=== PATIENT | female | born 1965 | race Caucasian/White ===

== ENCOUNTER → 2020-02-12 15:34 | Outpatient (BNVA) | payer OTHER, SELFPAY | PROVIDERS: PCP Physician Assistant Medical; Referring Provider Physician Assistant Medical; Visit Provider Student in an Organized Health Care Education/Training Program | DX: Z76.89 Persons encountering health services in other specified circumstances (principal) ==

== ENCOUNTER 2020-03-12 08:45 | Outpatient (REF) | payer OTHER, SELFPAY ==
--- NOTE | 2020-03-12 08:51 | EMG_ITS ---
Bilateral tibial and peroneal motor studies were performed. Bilateral sural and superficial peroneal sensory studies were performed. Bilateral tibial H reflexes were obtained and paraspinal muscles were tested. IMPRESSION: 1. 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 2. Underlying generalized mild neuropathy mostly affecting sensory nerves. MD MARCELA Medina/ANY / [id number]
== END 2020-03-12 08:46 | disposition home or self-care (01) ==
LOC: HO.NEURO 08:45
PROVIDERS: Visit Provider Student in an Organized Health Care Education/Training Program
DX: R20.0 Anesthesia of skin (principal); R20.2 Paresthesia of skin
CPT/HCPCS: 95860; 95886; 95911

== ENCOUNTER → 2020-08-18 15:33 | Outpatient (BNVA) | payer OTHER, SELFPAY | PROVIDERS: PCP Physician Assistant Medical; Visit Provider Student in an Organized Health Care Education/Training Program ==

== ENCOUNTER → 2021-03-01 14:19 | Outpatient (BNVA) | payer OTHER, SELFPAY | PROVIDERS: PCP Physician Assistant Medical; Visit Provider Nurse Practitioner Family ==

== ENCOUNTER 2021-12-10 15:20 | Outpatient (REF) | payer OTHER, SELFPAY ==
[2021-12-10 17:37] LABS: Alanine Aminotransferase 18 U/L (0-31); Albumin Level 4.5 g/dL (3.5-5.0); Alkaline Phosphatase 83 U/L (39-117); Anion Gap 17 (12-20); Aspartate Amino Transferase 30 U/L (5-31); Bilirubin Total 0.2 mg/dL (0.0-1.0); Blood Urea Nitrogen 20 mg/dL (9-16); Calcium 9.6 mg/dL (8.4-10.2); Carbon Dioxide 24 mmol/L (22-29); Chloride 104 mmol/L (96-108); Estimated Glomerular Filt Rate > 60; Glucose Random 70 mg/dL (60-115); Potassium 4.4 mmol/L (3.3-5.1); Sodium 141 mmol/L (135-145); Total Protein 7.4 g/dL (6.5-8.0)
== END 2021-12-10 15:21 | disposition home or self-care (01) ==
LOC: HO.LAB 15:20
PROVIDERS: Visit Provider Nurse Practitioner Family
DX: M79.7 Fibromyalgia (principal)
CPT/HCPCS: 36415; 80053

== ENCOUNTER → 2022-08-04 13:47 | Outpatient (BNVA) | payer OTHER, SELFPAY | PROVIDERS: PCP Internal Medicine; Visit Provider Nurse Practitioner Family ==

== ENCOUNTER 2023-08-03 15:34 | Outpatient (AMB) | payer OTHER, SELFPAY ==
--- NOTE | 2023-08-03 15:42 | MHC.OFFVIS ---
Vital Signs 08/03/23 15:47 Height 5 ft 2 in Weight 247 lb 5.738 oz BMI 45.2 BP 132/74 Blood Pressure Location Rt brachial Position Sitting Pulse 70 Pulse Oximetry (%) 98 Intake Visit Reasons: FM Intake Note: Patient last seen 01/25/23 presents today for follow up and test results. Allergies No Known Allergies Allergy (Verified 08/03/23 15:42) Medication List - Last Reconciled 08/03/23 by Adriane Petersen MD atenolol 50 mg PO DAILY duloxetine 40 mg (2 x 20 mg) PO DAILY loratadine (Allergy Relief (loratadine)) 10 mg PO DAILY amnniszh-yzq-TV-lycopen-lutein 0.4 mg-300 mcg- 250 mcg (Centrum Silver) 1 tab PO DAILY vitamin B complex (B Complex-Vitamin B12 tablet) 1 tab PO DAILY HPI Comments Details: This is a 57-year-old female with fibromyalgia who presents for follow-up. She was last seen by Sana Partida 07/2022. She is on duloxetine 40 mg daily. Well-tolerated. She states that she is doing fairly well overall. There has not been any major changes in her condition. She states that she gets intermittent left knee pain especially with going up and down the stairs. She takes Advil once or twice a month as needed for her knee pain. She walks about 25 minutes a day. She states that she sleeps reasonably well. PENDING SALE TO [facility] Medical History Fibromyalgia Surgical History H/O removal of cyst Hx of section Family History Father HTN (hypertension) Mother No problems noted. Social History Alcohol intake: current Alcohol intake frequency: holidays/special occasions only Patient Tobacco Use Status: Former Tobacco user Years Smoked: 15 Review of Systems [facility] [place] Reports arthralgias Physical Exam Vital Signs: Last Vital Signs Pulse 70 08/03/23 15:47 BP 132/74 08/03/23 15:47 Pulse Ox 98 08/03/23 15:47 BMI result Body Mass Index 45.2 Const General: cooperative, healthy appearing and comfortable Nutritional Appearance: obese morbidly obese Orientation/consciousness: patient oriented x3 Limitations: no limitations HEENT Head: Yes normocephalic and Yes atraumatic Mouth: moist mucous membranes Resp Effort & Inspection: normal respiratory effort and able to speak in complete sentences Auscultation: clear to auscultation bilaterally Skin General skin exam: no rashes or lesions noted Neuro General: patient oriented x3 Extrem Other: No active synovitis Left knee pain with full flexion Assessment & Plan Assessment & Plan (1) Fibromyalgia: Comment: duloxetine since 02/2019 started 20 mg increased to 40 mg 05/2019 to present. Code(s): M79.7 - Fibromyalgia Category: Medical Plan: Fibromyalgia appears well controlled at this time with Cymbalta 40 mg po daily. Continue with Cymbalta 40 mg daily. I will refill her Cymbalta for 3 months. Advised patient to request further Cymbalta refills from her PCP. Follow-up with me as needed (2) Osteoarthritis of left knee: Code(s): M17.12 - Unilateral primary osteoarthritis, left knee Category: Medical Qualifiers: Osteoarthritis type: primary Qualified Code(s): M17.12 - Unilateral primary osteoarthritis, left knee Plan: Minimal symptoms. Usually when navigating stairs. Symptoms improved with Advil once or twice a month. Advised patient to try using [id number] Voltaren gel. Plan I spent 20 minutes reviewing patient's chart, evaluating patient, counseling patient and documenting in the chart Medications: Refilled duloxetine 40 mg (2 x 20 mg) PO DAILY 180 caps 0RF Coding Level of Care Code Est Pt Level 3 (34977) Diagnoses Fibromyalgia M79.7 Primary osteoarthritis of left knee M17.12 Osteoarthritis type: primary
[2023-08-03 15:47] VITALS: BP 132/74; PULSE 70; O2SAT 98; BMI 45.2
== END 2023-08-03 16:12 | disposition home or self-care (01) ==
LOC: HO.RHE 15:34
PROVIDERS: PCP Internal Medicine; Visit Provider Student in an Organized Health Care Education/Training Program
DX: M79.7 Fibromyalgia (principal); M17.12 Unilateral primary osteoarthritis, left knee
CPT/HCPCS: 99213

== ENCOUNTER → 2023-08-03 15:34 | Outpatient (BNVA) | payer OTHER, SELFPAY | PROVIDERS: PCP Internal Medicine; Visit Provider Student in an Organized Health Care Education/Training Program ==